=== PATIENT | female | born 1985 | race Caucasian/White ===

== ENCOUNTER 2018-06-08 12:02 | Inpatient (IN) | payer MEDICAID | END 2018-06-09 17:51 | disposition home or self-care (01) | LOC: ER 12:02 → OVERFLOW 15:30 → WEST WING 19:20 | DX: K35.890 Other acute appendicitis without perforation or gangrene (principal); K65.1 Peritoneal abscess; J45.909 Unspecified asthma, uncomplicated; N73.9 Female pelvic inflammatory disease, unspecified ==